=== PATIENT | male | born 1985 | race African-American/Black ===

== ENCOUNTER 2018-10-12 13:24 | Emergency (ER) | payer MEDICAID ==
[~2018-10-12] VITALS: Ht 160 cm; Wt 67.3 kg
[2018-10-12 13:26] VITALS: Ht 160 cm; Wt 67.3 kg
[2018-10-12] MEDS ORDERED: VOLTAREN75 MG PO (14:33)
[2018-10-12] MEDS ORDERED: ROBAXIN500 MG PO (14:33)
[2018-10-12 15:57] VITALS: BP 130/83
== END 2018-10-12 15:58 | disposition home or self-care (01) ==
LOC: D.ER 13:24
DX: S20.212A Contusion of left front wall of thorax, initial encounter (principal); W18.30XA Fall on same level, unspecified, initial encounter; Y93.89 Activity, other specified; Y92.89 Other specified places as the place of occurrence of the external cause